=== PATIENT | male | born 1990 | race Caucasian/White ===

== ENCOUNTER 2020-09-18 21:38 | Observation (INO) | payer SELFPAY ==
[2020-09-18] MEDS ORDERED: Sodium Chloride 0.9% 2.5 ML Syringe FLUSH PRN (22:20)
[2020-09-18] MEDS ORDERED: Sodium Chloride 0.9% 1,000 ML IV ONE (22:20)
[2020-09-18] MEDS ORDERED: Sodium Chloride 0.9% 10 ML Syringe FLUSH PRN (22:20)
[2020-09-18] MEDS ORDERED: Pantoprazole 80 MG in Sodium Chloride 0.9% 20 ML IVPUSH ONE (22:29)
--- NOTE | 2020-09-18 22:31 | EDM.PDOC ---
<Clarice Ramírez - Last Filed: 09/19/20 00:05> ED HPI GENERAL MEDICAL PROBLEM - General Chief Complaint: Gastrointestinal Problem Stated Complaint: VOMITTING BLOOD Time Seen by Provider: 09/18/20 21:43 Source of Information: Reports: Patient History Limitations: Reports: No Limitations - History of Present Illness INITIAL COMMENTS - FREE TEXT/NARRATIVE: HISTORY AND PHYSICAL: History of present illness: The patient is a 30-year-old male who presents to the emergency department after 6 hours of vomiting blood. Patient states that he started vomiting a little amount of brown emesis and over the course of 6 hours it became a larger amount and very black. The patient states that he is not in pain except when he is vomiting and he has an acid-like feeling in his throat. The patient had some nausea but none at present. He does have a headache that started around 9:00. He stated that at around 1500 today he felt a little lightheaded but not right now. The patient did eat a hotdog at noon but it did not stay down he immediately vomited back up. Patient states that his last bowel movement was 2 days ago normal formed and brown in color. Patient states that he is passing gas. The patient is extremely dairy intolerant but assures me that he has not taken any has not ingested any dairy that he is aware of. Is a social drinker and his last drink was last week and. The patient states that he has not had any trauma to the abdomen or back. Patient states that while he does not have any urinary symptoms such as dysuria or frequency he has only urinated 3-4 times since 3 PM. Patient denies any fever, chills, change in vision, syncope or near syncope. Denies any chest pain, back pain, shortness of breath or cough. Denies any abd ominal pain, diarrhea, constipation or dysuria. Has not noted any blood in urine or stool. Review of systems: As per history of present illness and below otherwise all systems reviewed and negative. Past medical history: As per history of present illness and as reviewed below otherwise noncontributory. Surgical history: As per history of present illness and as reviewed below otherwise nonco ntributory. Social history: See social history for further information Family history: As per history of present illness and as reviewed below otherwise noncontributory. Physical exam: General: Well developed and well nourished. Alert and orientated x 3. Nontoxic in appearance and in no acute distress. Vital signs are stable and have been reviewed by me. Nursing notes were reviewed. HEENT: Atraumatic, normocephalic, pupils equal and reactive bilaterally, negative for conjunctival pallor or scleral icterus, mucous membranes moist, TMs normal bilaterally, throat clear, neck supple, nontender, trachea midline. No drooling or trismus noted. No meningeal signs. No hot potato voice noted. Lungs: Clear to auscultation bilaterally. No wheezes, rales, or rhonchi. Chest nontender. Normal work of breathing, no accessory muscles used. Heart: S1S2, regular rate and rhythm without overt murmur, gallops, or rubs. No JVD. No peripheral edema Abdomen: Soft, nondistended, nontender. Normoactive bowel sounds. Negative for masses or costovertebral tenderness. Skin: Intact, warm, dry. No lesions or rashes noted. Hematologic: No petechiae or purpra. Mucosa appropriate color and normal nail bed color and refill. Extremities: Atraumatic, moves all extremities per self without difficulty or deficits, negative for cords or calf pain. Neurovascular unremarkable. Neuro: Awake, alert, oriented. Cranial nerves II through XII unremarkable. Cerebellum unremarkable. Motor and sensory unremarkable throughout. Exam nonfocal. Psychiatric: Mood and affect are appropriate. Normal thought process. Answering questions appropriately. Notes: *This patient was seen and evaluated during the 2019 SARS-CoV-2 novel coronavirus pandemic period. Community viral transmission is ongoing at time of this encounter and the emergency department is operating under pandemic response procedures. As stated above the patient presents with progressing black emesis over the last 6 hours. The patient's pulse in the emergency department is 130 and his blood pressure was 151/103. I have ordered labs, IV fluids, and an EKG. Dr. Madden consulted on case and has ordered lipase and pantoprazole IV. The patient is agreeable to the plan. Report to Dr. Madden Diagnostics: CBC, CMP, EKG, lipase, museum Therapeutics: IV fluids, pantoprazole Prescription: Impression: Definitive disposition and diagnosis as appropriate pending reevaluation and review of above. - Related Data Allergies Allergy/AdvReac Type Severity Reaction Status Date / Time Dairy Products Allergy Vomiting Verified 09/18/20 22:45 Home Meds: Home Meds Fexofenadine/Pseudoephedrine [Irene-D 12 Hour Tablet] 1 each PO DAILY 09/18/20 [History] ED ROS GENERAL - Review of Systems Review Of Systems: Comprehensive ROS is negative, except as noted in HPI. ED EXAM, GI/ABD - Physical Exam Exam: See Below (See dictation) Departure - Departure Disposition: Refer to Observation Clinical Impression: Upper GI bleed, Tachycardia - Discharge Information Referrals: PCP,None [Primary Care Provider] - Forms: ED Department Discharge <Hugo Madden - Last Filed: 09/19/20 01:05> #1 Interpretation EKG Interpretation Comments: EKG sinus tachycardia heart rate 126 [place] 82 NV interval 150 QT duration [address] and T impression this is normal except for the heart rate. Course - Vital Signs Text/Narrative:: [address] Bhargav Santillan on-call for surgery and he is willing to scope the patient in the morning. Because of the tachycardia I am going to hydrate him and recommend observation overnight. Dr. Santillan wants Carafate given now and patient n.p.o. after midnight. CT showed a hiatal hernia but no perforation. Discussed with Dr. Kyle Santillan and placed in observation status for endoscopy in the morning. He will be placed in observation status Last Recorded V/S: Last Vital Signs Temp 37.8 C 09/18/20 22:43 Pulse 112 H 09/19/20 00:08 Resp 18 09/19/20 00:08 BP 131/93 H 09/19/20 00:08 Pulse Ox 97 09/19/20 00:08 - Orders/Labs/Meds Orders: Active Orders 24 hr Category Date Time Status EKG Documentation Completion [RC] STAT Care 09/18/20 22:20 Active CORONAVIRUS COVID-19 PETER [MOLEC] Stat Lab 09/19/20 00:51 Received Dextrose 5%-Lactated Ringers 1,000 ml Med 09/19/20 00:30 Active IV ASDIRECTED Sodium Chloride 0.9% [Saline Flush] Med 09/18/20 22:20 Active 10 ml FLUSH ASDIRECTED PRN Sodium Chloride 0.9% [Saline Flush] Med 09/18/20 22:20 Active 2.5 ml FLUSH ASDIRECTED PRN Saline Lock Insert [OM.PC] Stat Oth 09/18/20 22:20 Ordered Medication Orders Dextrose/Lactated Ringer's (Dextrose 5%-Lactated Ringers) 1,000 mls @ 125 mls/hr IV ASDIRECTED KISHA Last Admin: 09/19/20 00:45 Dose: 125 mls/hr Documented by: PAUL Sodium Chloride (Sodium Chloride 0.9% 10 Ml Syringe) 10 ml FLUSH ASDIRECTED PRN PRN Reason: Keep Vein Open Last Admin: 09/18/20 22:54 Dose: 10 ml Documented by: PAUL Sodium Chloride (Sodium Chloride 0.9% 2.5 Ml Syringe) 2.5 ml FLUSH ASDIRECTED PRN PRN Reason: Keep Vein Open Last Admin: 09/18/20 22:55 Dose: 2.5 ml Documented by: PAUL Labs: Laboratory Tests 09/18/20 09/18/20 09/18/20 Range/Units 22:37 23:10 23:10 WBC 7.13 (4.0-11.0) K/uL RBC 5.24 (4.50-5.90) M/uL Hgb 15.3 (13.0-17.0) g/dL Hct 43.6 (38.0-50.0) % MCV 83.2 (80.0-98.0) fL MCH 29.2 (27.0-32.0) pg MCHC 35.1 (31.0-37.0) g/dL RDW Std Deviation 36.3 (28.0-62.0) fl RDW Coeff of Xavier 12 (11.0-15.0) % Plt Count 209 (150-400) K/uL MPV 9.10 (7.40-12.00) fL Neut % (Auto) 83.6 H (48.0-80.0) % Lymph % (Auto) 6.3 L (16.0-40.0) % Aurora % (Auto) 9.8 (0.0-15.0) % Eos % (Auto) 0.3 (0.0-7.0) % Baso % (Auto) 0.0 (0.0-1.5) % Neut # (Auto) 6.0 H (1.4-5.7) K/uL Lymph # (Auto) 0.5 L (0.6-2.4) K/uL Aurora # (Auto) 0.7 (0.0-0.8) K/uL Eos # (Auto) 0.0 (0.0-0.7) K/uL Baso # (Auto) 0.0 (0.0-0.1) K/uL Nucleated RBC % 0.0 /100WBC Nucleated RBCs # 0 K/uL INR Sodium 140 (136-148) mmol/L Potassium 3.6 (3.5-5.1) mmol/L Chloride 102 (98-107) mmol/L Carbon Dioxide 29.1 (21.0-32.0) mmol/L BUN 9 (7.0-18.0) mg/dL Creatinine 1.0 (0.8-1.3) mg/dL Est Cr Clr Drug Dosing 129.10 mL/min Estimated GFR (MDRD) > 60.0 ml/min Glucose 118 H (74-106) mg/dL Calcium 9.0 (8.5-10.1) mg/dL Magnesium 1.9 (1.8-2.4) mg/dL Total Bilirubin 0.9 (0.2-1.0) mg/dL AST 12 L (15-37) IU/L ALT 24 (14-63) IU/L Alkaline Phosphatase 82 (46-116) U/L Total Protein 6.8 (6.4-8.2) g/dL Albumin 3.7 (3.4-5.0) g/dL Globulin 3.1 (2.6-4.0) g/dL Albumin/Globulin Ratio 1.2 (0.9-1.6) Lipase (73-393) U/L Blood Type A POSITIVE Antibody Screen NEGATIVE 09/18/20 09/18/20 Range/Units 23:10 23:22 WBC (4.0-11.0) K/uL RBC (4.50-5.90) M/uL Hgb (13.0-17.0) g/dL Hct (38.0-50.0) % MCV (80.0-98.0) fL MCH (27.0-32.0) pg MCHC (31.0-37.0) g/dL RDW Std Deviation (28.0-62.0) fl RDW Coeff of Xavier (11.0-15.0) % Plt Count (150-400) K/uL MPV (7.40-12.00) fL Neut % (Auto) (48.0-80.0) % Lymph % (Auto) (16.0-40.0) % Aurora % (Auto) (0.0-15.0) % Eos % (Auto) (0.0-7.0) % Baso % (Auto) (0.0-1.5) % Neut # (Auto) (1.4-5.7) K/uL Lymph # (Auto) (0.6-2.4) K/uL Aurora # (Auto) (0.0-0.8) K/uL Eos # (Auto) (0.0-0.7) K/uL Baso # (Auto) (0.0-0.1) K/uL Nucleated RBC % /100WBC Nucleated RBCs # K/uL INR 1.08 Sodium (136-148) mmol/L Potassium (3.5-5.1) mmol/L Chloride (98-107) mmol/L Carbon Dioxide (21.0-32.0) mmol/L BUN (7.0-18.0) mg/dL Creatinine (0.8-1.3) mg/dL Est Cr Clr Drug Dosing mL/min Estimated GFR (MDRD) ml/min Glucose (74-106) mg/dL Calcium (8.5-10.1) mg/dL Magnesium (1.8-2.4) mg/dL Total Bilirubin (0.2-1.0) mg/dL AST (15-37) IU/L ALT (14-63) IU/L Alkaline Phosphatase (46-116) U/L Total Protein (6.4-8.2) g/dL Albumin (3.4-5.0) g/dL Globulin (2.6-4.0) g/dL Albumin/Globulin Ratio (0.9-1.6) Lipase 38 L (73-393) U/L Blood Type Antibody Screen Meds: Medications Generic Name Dose Route Start Last Admin Trade Name Freq PRN Reason Stop Dose Admin Dextrose/Lactated Ringer's 1,000 mls @ 125 mls/hr 09/19/20 00:30 09/19/20 00:45 Dextrose 5%-Lactated Ringers IV 125 mls/hr ASDIRECTED KISHA Administration Sodium Chloride 10 ml 09/18/20 22:20 09/18/20 22:54 Sodium Chloride 0.9% 10 Ml Syringe FLUSH 10 ml ASDIRECTED PRN Administration Keep Vein Open Sodium Chloride 2.5 ml 09/18/20 22:20 09/18/20 22:55 Sodium Chloride 0.9% 2.5 Ml Syringe FLUSH 2.5 ml ASDIRECTED PRN Administration Keep Vein Open Discontinued Medications Generic Name Dose Route Start Last Admin Trade Name Freq PRN Reason Stop Dose Admin Sodium Chloride 1,000 mls @ 999 mls/hr 09/18/20 22:20 09/18/20 22:54 Normal Saline IV 09/18/20 23:20 999 mls/hr .BOLUS ONE Administration Pantoprazole Sodium 80 mg/ 20 mls @ 420 mls/hr 09/18/20 22:29 09/18/20 22:55 Sodium Chloride IVPUSH 09/18/20 22:31 420 mls/hr ONETIME ONE Administration Iopamidol 100 ml 09/19/20 00:27 09/19/20 00:27 Iopamidol 755 Mg/Ml 500 Ml Multipack Bottle IVPUSH 09/19/20 00:28 100 ml ONETIME STA Administration Ondansetron HCl 4 mg 09/18/20 23:03 09/18/20 23:10 Ondansetron 4 Mg/2 Ml Sdv IVPUSH 09/18/20 23:04 4 mg ONETIME ONE Administration Sucralfate 1 gm 09/18/20 23:58 09/19/20 00:07 Sucralfate 1 Gm Tab PO 09/18/20 23:59 1 gm ONETIME ONE Administration Departure - Departure Time of Disposition: 01:05 Condition: Good Sepsis Event Note (ED) - Focused Exam Vital Signs: Vital Signs Temp Pulse Resp BP Pulse Ox 09/19/20 00:08 112 H 18 131/93 H 97 09/18/20 22:43 37.8 C 130 H 16 130/96 H 93 L - My Orders Last 24 Hours: My Active Orders 09/19/20 00:30 Dextrose 5%-Lactated Ringers 1,000 ml IV ASDIRECTED 09/19/20 00:51 CORONAVIRUS COVID-19 PETER [MOLEC] Stat - Assessment/Plan Last 24 Hours: My Active Orders 09/19/20 00:30 Dextrose 5%-Lactated Ringers 1,000 ml IV ASDIRECTED 09/19/20 00:51 CORONAVIRUS COVID-19 PETER [MOLEC] Stat
[2020-09-18] MEDS ORDERED: Ondansetron 4 MG/2 ML SDV IVPUSH ONE (23:03)
[2020-09-18 23:55] LABS: BLOOD UREA NITROGEN,BUN 9 mg/dL (7.0-18.0); CARBON DIOXIDE,CO2 29.1 mmol/L (21.0-32.0); CHLORIDE,CL 102 mmol/L (98-107); GLUCOSE RANDOM 118 mg/dL (74-106); POTASSIUM,K 3.6 mmol/L (3.5-5.1); SODIUM,NA 140 mmol/L (136-148)
[2020-09-18] MEDS ORDERED: Sucralfate 1 GM Tab PO ONE (23:58)
[2020-09-19] MEDS ORDERED: Iopamidol 755 MG/ML 500 ML Multipack Bottle IVPUSH STA (00:27)
[2020-09-19] MEDS ORDERED: Dextrose 5%-Lactated Ringers 1,000 ML IV SCH (00:30)
--- NOTE | 2020-09-19 00:56 | CT ---
For Patients: As a result of the Century Cures Act, medical imaging exams and procedure reports are released immediately into your electronic medical record. You may view this report before your referring provider. If you have questions, please contact your health care provider. Indication: Coffee-ground emesis Technique: Contrast enhanced axial CT imaging through the abdomen and pelvis. 100 mL Isovue 370 contrast agent was administered intravenously. Sagittal and coronal reconstructions are provided. Comparison: None Findings: No abnormalities are demonstrated relating to the liver, gallbladder, spleen, pancreas, adrenal glands, and kidneys. The portal vein is patent. The abdominal aorta is normal in caliber. There is no abdominal lymphadenopathy. There is a small sliding-type hiatal hernia. Two oval hyperdense foci in the stomach presumably represent ingested pills. There is no gastric wall thickening or edema. The small bowel is unremarkable. The appendix is noninflamed. There is no colonic wall thickening or mesenteric edema. The urinary bladder, prostate gland, and seminal vesicles are unremarkable. There is no pelvic lymphadenopathy or free fluid. The osseous structures are unremarkable. The included lung bases are clear. Impression: 1. No acute abnormality demonstrated in the abdomen pelvis. 2. Small sliding-type hiatal hernia. Please note that all CT scans at this facility use dose modulation, iterative reconstruction, and/or weight-based dosing when appropriate to reduce radiation dose to as low as reasonably achievable. Dictated by Kyle Paz MD @ 09/19/2020 12:55:[address] Klye Paz @ Sep 19 2020 12:55AM
--- NOTE | 2020-09-19 04:33 | CONS ---
DATE OF CONSULTATION: 09/19/2020 DATE OF : 1990 PRIMARY CARE PHYSICIAN: None PCP HISTORY OF PRESENT ILLNESS: The patient is a pleasant 30-year-old gentleman who says around 3 p.m. this afternoon he started vomiting. He says first it was brown and then it became more black. The patient had a hot dog for lunch. The patient says he does have some epigastric pain when he vomits. When he is not vomiting, he is having very little to no abdominal pain. Since being in the ER, he says his emesis has turned green and more bile color. Also after getting Zofran, his nausea has greatly decreased. The patient says over the last couple of months he has noticed intermittent dark stools. He has not had a bowel movement in the last 2 days. He denies any bright red blood in his emesis. The patient denies any swallowing or eating issues. He does have issues with heartburn, and he takes Tums several times most days. The patient says he also is allergic to dairy products. He denies any tobacco use. He occasionally uses alcohol. PAST MEDICAL HISTORY: The patient denies any other than his heartburn. HOME MEDICATIONS: Irene and Tums. SOCIAL HISTORY: The patient denies any tobacco use, denies illicit drug use. He does have a couple of beers on occasion. FAMILY HISTORY: Does have family history of leukemia. PAST SURGICAL HISTORY: Wrist surgery. ALLERGIES: No known drug allergies. Is intolerant to dairy products. LABORATORY DATA: White cell count is 7.13, hemoglobin is 15.3, platelet count is 209. INR is 1.08. Sodium 140, potassium 3.6, chloride 102, BUN 9, creatinine 1. COVID negative. IMAGING: Did have a CT scan which did show a small hiatal hernia. He also has two likely undigested pills in the stomach. REVIEW OF SYSTEMS: Complete 12+ review of systems was done. It was negative except for HPI. NEUROLOGICAL: The patient says he is starting to have a little bit of a headache. MUSCULAR: The patient says he is having soreness in his quadriceps bilaterally in his legs. PHYSICAL EXAMINATION: GENERAL: The patient is sitting comfortably in the ER bed. He is alert and oriented, in no acute distress. VITAL SIGNS: Temperature is 100, pulse is 112, blood pressure is 131/93, saturating 97% on room air. HEENT: Head normocephalic and atraumatic. LUNGS: Clear to auscultation bilaterally. No rhonchi or wheezing heard. HEART: Regular rhythm, but is tachy. No murmur appreciated. ABDOMEN: Soft, nontender, and nondistended. EXTREMITIES: No edema. NEUROLOGIC: Grossly, no motor or neurologic deficit noted. ASSESSMENT AND PLAN: The patient is a pleasant 30-year-old gentleman who has been consulted for upper gastrointestinal bleed. He has not seen any bright red blood, but just brown and black emesis, which has now turned to more green and bile like. The patient does have a history of heartburn, which he takes Tums for. Hemoglobin was 15.3. I did go over with the patient that consult is to do an upper endoscopy. I did go over with the patient what esophagogastroduodenoscopy was. I went over with the risks, goals, and alternatives of the procedure. The risks include, but not limited to, bleeding, perforation, missed lesions, and failure to complete the procedure. I did go over with the patient that we may not find a cause for his emesis or the black emesis. Emesis earlier could have been black for reasons other than a bleed. The patient understands. All his questions were answered. We will plan to do an upper endoscopy later this morning. He will be admitted to the Medicine Service. He has been also given IV Protonix. DANTE / LATASHA /[id number]
[2020-09-19] MEDS: Sodium Chloride 0.9% 1,000 ML IV SCH ×2 (05:23→10:46)
[2020-09-19] MEDS ORDERED: Pantoprazole 40 MG in Sodium Chloride 0.9% 10 ML IV SCH ×2 (07:30→09:00)
--- NOTE | 2020-09-19 08:56 | PCM.PREANE ---
Preanesthetic Assessment - Anesthesia/Transfusion/Family Hx Anesthesia History: Prior Anesthesia Without Reaction Family History of Anesthesia Reaction: No Transfusion History: No Prior Transfusion(s) Intubation History: Unknown - Review of Systems General: No Symptoms Pulmonary: No Symptoms Cardiovascular: No Symptoms, Other (Tachycardia) Gastrointestinal: Other (Emesis) Neurological: No Symptoms Other: Reports: None - Physical Assessment NPO Status Date: 09/19/20 NPO Status Time: 00:00 Vital Signs: Last Vital Signs Temp 37.1 C 09/19/20 08:06 Pulse 119 H 09/19/20 08:06 Resp 18 09/19/20 08:06 BP 114/70 09/19/20 08:06 Pulse Ox 99 09/19/20 08:06 Height: 1.91 m Weight: 94.619 kg ASA Class: 2E Mental Status: Alert & Oriented x3 Airway Class: Mallampati = 2 Dentition: Reports: Normal Dentition Thyro-Mental Finger Breadths: 3 Mouth Opening Finger Breadths: 3 ROM/Head Extension: Full Lungs: Clear to Auscultation, Normal Respiratory Effort Cardiovascular: Regular Rate, Tachycardia - Lab Values: Laboratory Last Values WBC 7.13 K/uL (4.0-11.0) 09/18/20 23:10 RBC 5.24 M/uL (4.50-5.90) 09/18/20 23:10 Hgb 15.3 g/dL (13.0-17.0) 09/18/20 23:10 Hct 43.6 % (38.0-50.0) 09/18/20 23:10 MCV 83.2 fL (80.0-98.0) 09/18/20 23:10 MCH 29.2 pg (27.0-32.0) 09/18/20 23:10 MCHC 35.1 g/dL (31.0-37.0) 09/18/20 23:10 RDW Std Deviation 36.3 fl (28.0-62.0) 09/18/20 23:10 RDW Coeff of Xavier 12 % (11.0-15.0) 09/18/20 23:10 Plt Count 209 K/uL (150-400) 09/18/20 23:10 MPV 9.10 fL (7.40-12.00) 09/18/20 23:10 Neut % (Auto) 83.6 % (48.0-80.0) H 09/18/20 23:10 Lymph % (Auto) 6.3 % (16.0-40.0) L 09/18/20 23:10 Ross % (Auto) 9.8 % (0.0-15.0) 09/18/20 23:10 Eos % (Auto) 0.3 % (0.0-7.0) 09/18/20 23:10 Baso % (Auto) 0.0 % (0.0-1.5) 09/18/20 23:10 Neut # (Auto) 6.0 K/uL (1.4-5.7) H 09/18/20 23:10 Lymph # (Auto) 0.5 K/uL (0.6-2.4) L 09/18/20 23:10 Ross # (Auto) 0.7 K/uL (0.0-0.8) 09/18/20 23:10 Eos # (Auto) 0.0 K/uL (0.0-0.7) 09/18/20 23:10 Baso # (Auto) 0.0 K/uL (0.0-0.1) 09/18/20 23:10 Nucleated RBC % 0.0 /100WBC 09/18/20 23:10 Nucleated RBCs # 0 K/uL 09/18/20 23:10 INR 1.08 09/18/20 23:22 Sodium 140 mmol/L (136-148) 09/18/20 23:10 Potassium 3.6 mmol/L (3.5-5.1) 09/18/20 23:10 Chloride 102 mmol/L (98-107) 09/18/20 23:10 Carbon Dioxide 29.1 mmol/L (21.0-32.0) 09/18/20 23:10 BUN 9 mg/dL (7.0-18.0) 09/18/20 23:10 Creatinine 1.0 mg/dL (0.8-1.3) 09/18/20 23:10 Est Cr Clr Drug Dosing 129.10 mL/min 09/18/20 23:10 Estimated GFR (MDRD) > 60.0 ml/min 09/18/20 23:10 Glucose 118 mg/dL (74-106) H 09/18/20 23:10 Calcium 9.0 mg/dL (8.5-10.1) 09/18/20 23:10 Magnesium 1.9 mg/dL (1.8-2.4) 09/18/20 23:10 Total Bilirubin 0.9 mg/dL (0.2-1.0) 09/18/20 23:10 AST 12 IU/L (15-37) L 09/18/20 23:10 ALT 24 IU/L (14-63) 09/18/20 23:10 Alkaline Phosphatase 82 U/L (46-116) 09/18/20 23:10 Total Protein 6.8 g/dL (6.4-8.2) 09/18/20 23:10 Albumin 3.7 g/dL (3.4-5.0) 09/18/20 23:10 Globulin 3.1 g/dL (2.6-4.0) 09/18/20 23:10 Albumin/Globulin Ratio 1.2 (0.9-1.6) 09/18/20 23:10 Lipase 38 U/L (73-393) L 09/18/20 23:10 SARS-CoV-2 RNA (PETER) NEGATIVE (NEGATIVE) 09/19/20 00:51 Blood Type A POSITIVE 09/18/20 22:37 Antibody Screen NEGATIVE 09/18/20 22:37 - Allergies Allergies/Adverse Reactions: Allergies Allergy/AdvReac Type Severity Reaction Status Date / Time Dairy Products Allergy Vomiting Verified 09/18/20 22:45 - Blood Blood Available: No Product(s) Available: None - Anesthesia Plan Pre-Op Medication Ordered: None - Acknowledgements Anesthesia Type Planned: MAC Pt an Appropriate Candidate for the Planned Anesthesia: Yes Alternatives and Risks of Anesthesia Discussed w Pt/Guardian: Yes Pt/Guardian Understands and Agrees with Anesthesia Plan: Yes Additional Comments: Discussed. ? answered, permit signed. PreAnesthesia Questionnaire - Infectious Disease History Infectious Disease History: Reports: None - Past Surgical History Musculoskeletal Surgical History: Reports: Other (See Below) Other Musculoskeletal Surgeries/Procedures:: wrist surgery - SUBSTANCE USE Tobacco Use Status *Q: Never Tobacco User Tobacco Use Within Last Twelve Months: No Second Hand Smoke Exposure: No Days Per Week of Alcohol Use: 1 Number of Drinks Per Day: 5 Total Drinks Per Week: 5 Date of Last Drink: 09/12/20 Recreational Drug Use History: No - HOME MEDS Home Medications: Home Meds Fexofenadine/Pseudoephedrine [Irene-D 12 Hour Tablet] 1 each PO DAILY 09/18/20 [History] - CURRENT (IN HOUSE) MEDS Current Meds: Current Medications Sodium Chloride (Normal Saline) 1,000 mls @ 125 mls/hr IV ASDIRECTED KISHA Last Admin: 09/19/20 05:23 Dose: 125 mls/hr Documented by: Pantoprazole Sodium 40 mg/ (Sodium Chloride) 10 mls @ 300 mls/hr IV BID KISHA Sodium Chloride (Sodium Chloride 0.9% 10 Ml Syringe) 10 ml FLUSH ASDIRECTED PRN PRN Reason: Keep Vein Open Last Admin: 09/18/20 22:54 Dose: 10 ml Documented by: Sodium Chloride (Sodium Chloride 0.9% 2.5 Ml Syringe) 2.5 ml FLUSH ASDIRECTED PRN PRN Reason: Keep Vein Open Last Admin: 09/18/20 22:55 Dose: 2.5 ml Documented by: Discontinued Medications Sodium Chloride (Normal Saline) 1,000 mls @ 999 mls/hr IV .BOLUS ONE Stop: 09/18/20 23:20 Last Admin: 09/18/20 22:54 Dose: 999 mls/hr Documented by: Pantoprazole Sodium 80 mg/ (Sodium Chloride) 20 mls @ 420 mls/hr IVPUSH ONETIME ONE Stop: 09/18/20 22:31 Last Admin: 09/18/20 22:55 Dose: 420 mls/hr Documented by: Dextrose/Lactated Ringer's (Dextrose 5%-Lactated Ringers) 1,000 mls @ 125 ml s/hr IV ASDIRECTED KISHA Last Admin: 09/19/20 00:45 Dose: 125 mls/hr Documented by: Pantoprazole Sodium 40 mg/ (Sodium Chloride) 10 mls @ 300 mls/hr IV BIDAC KISHA Iopamidol (Iopamidol 755 Mg/Ml 500 Ml Multipack Bottle) 100 ml IVPUSH ONETIME STA Stop: 09/19/20 00:28 Last Admin: 09/19/20 00:27 Dose: 100 ml Documented by: Ondansetron HCl (Ondansetron 4 Mg/2 Ml Sdv) 4 mg IVPUSH ONETIME ONE Stop: 09/18/20 23:04 Last Admin: 09/18/20 23:10 Dose: 4 mg Documented by: Sucralfate (Sucralfate 1 Gm Tab) 1 gm PO ONETIME ONE Stop: 09/18/20 23:59 Last Admin: 09/19/20 00:07 Dose: 1 gm Documented by:
--- NOTE | 2020-09-19 09:07 | PCM.HP.2 ---
H&P History of Present Illness - General Date of Service: 09/19/20 Admit Problem/Dx: Admission Diagnosis/Problem Admission Diagnosis/Problem GI bleed not requiring more than 4 units of blood in 24 hours, ICU, or surgery Source of Information: Patient History Limitations: Reports: No Limitations - History of Present Illness Initial Comments - Free Text/Narative: Patient is a 30-year-old male with no significant past medical history except for frequent heartburn and stomach complaints of lactose intolerance. Patient presented to the ED yesterday with complaints of vomiting for approximately 6 hours. States that initially he had small vomits with a brown color associated gradually increasing in quantity, frequency and progressing to a black color. Patient denies any associated pain, fever, chills, urinary or bowel changes. Does endorse associated nausea, decreased appetite, inability to keep food down. States that Zofran given had helped reduce nausea symptoms. States last night his vomits became more yellow-green like bile. ER course: Patient was tachycardic 130s, blood pressure of 151/103, labs were ordered including CBC, CMP and INR. IV fluids were started, EKG, lipase level and given Protonix. Initially given LR followed by maintenance fluids of normal saline at 125. CT indicated hiatal hernia and to undigested pills in the abdomen. Duration of Symptoms: Reports: Day(s): (1) - Related Data Allergies/Adverse Reactions: Allergies Allergy/AdvReac Type Severity Reaction Status Date / Time Dairy Products Allergy Vomiting Verified 09/18/20 22:45 Home Medications: Home Meds Fexofenadine/Pseudoephedrine [Irene-D 12 Hour Tablet] 1 each PO DAILY 09/18/20 [History] Past Medical History - Infectious Disease History Infectious Disease History: Reports: None - Past Surgical History Musculoskeletal Surgical History: Reports: Other (See Below) Other Musculoskeletal Surgeries/Procedures:: wrist surgery Social & Family History - Family History Family Medical History: No Pertinent Family History - Tobacco Use Tobacco Use Status *Q: Never Tobacco User Second Hand Smoke Exposure: No - Caffeine Use Caffeine Use: Reports: Coffee - Alcohol Use Days Per Week of Alcohol Use: 1 Number of Drinks Per Day: 5 Total Drinks Per Week: 5 Date of Last Drink: 09/12/20 - Recreational Drug Use Recreational Drug Use: No H&P Review of Systems - Review of Systems: Review Of Systems: See Below General: Reports: Decreased Appetite HEENT: Reports: No Symptoms Pulmonary: Reports: No Symptoms. Denies: Shortness of Breath, Pleuritic Chest Pain, Cough, Hemoptysis Cardiovascular: Reports: No Symptoms. Denies: Palpitations Gastrointestinal: Reports: No Symptoms, Decreased Appetite, Nausea. Denies: Abdominal Pain, Black Stool, Bloody Stool, Constipation, Diarrhea, Flatus, Hematochezia, Melena Musculoskeletal: Reports: No Symptoms Skin: Reports: No Symptoms Psychiatric: Reports: No Symptoms Neurological: Reports: No Symptoms Hematologic/Lymphatic: Reports: No Symptoms Immunologic: Reports: No Symptoms Exam - Exam Exam: See Below - Vital Signs Vital Signs: Last Vital Signs Temp 98.7 F 09/19/20 08:06 Pulse 119 H 09/19/20 08:06 Resp 18 09/19/20 08:06 BP 114/70 09/19/20 08:06 Pulse Ox 99 09/19/20 08:06 Weight: 208 lb 9.6 oz - Exam General: Alert, Oriented, Cooperative HEENT: Conjunctiva Clear, Mucosa Moist & [place], Nares Patent, Posterior Pharynx Clear, Pupils Equal, Pupils Reactive Neck: Supple, Trachea Midline. No: Lymphadenopathy Lungs: Clear to Auscultation, Normal Respiratory Effort Cardiovascular: Regular Rhythm, Tachycardia. No: Regular Rate GI/Abdominal Exam: Normal Bowel Sounds, Soft, Non-Tender Extremities: Normal Inspection, Normal Range of Motion, Non-Tender, No Pedal Edema, Normal Capillary Refill Peripheral Pulses: 2+: Carotid (L), Carotid (R), Dorsalis Pedis (L), Dorsalis Pedis (R) Skin: Warm, Dry, Intact Neurological: Cranial Nerves Intact, Reflexes Equal Bilateral Neuro Extensive - Mental Status: Alert, Oriented x3, Normal Mood/Affect, Normal Cognition, Memory Intact Neuro Extensive - Motor, Sensory, Reflexes: CN II-XII Intact, Normal Gait, Normal Reflexes DTR: 2+: Bicep (L), Bicep (R), Achilles (L), Achilles (R) Psychiatric: Alert, Normal Affect, Normal Mood - Patient Data Lab Results Last 24 hrs: Laboratory Results - last 24 hr 09/18/20 09/18/20 09/18/20 Range/Units 22:37 23:10 23:10 WBC 7.13 (4.0-11.0) K/uL RBC 5.24 (4.50-5.90) M/uL Hgb 15.3 (13.0-17.0) g/dL Hct 43.6 (38.0-50.0) % MCV 83.2 (80.0-98.0) fL MCH 29.2 (27.0-32.0) pg MCHC 35.1 (31.0-37.0) g/dL RDW Std Deviation 36.3 (28.0-62.0) fl RDW Coeff of Xavier 12 (11.0-15.0) % Plt Count 209 (150-400) K/uL MPV 9.10 (7.40-12.00) fL Neut % (Auto) 83.6 H (48.0-80.0) % Lymph % (Auto) 6.3 L (16.0-40.0) % [place] % (Auto) 9.8 (0.0-15.0) % Eos % (Auto) 0.3 (0.0-7.0) % Baso % (Auto) 0.0 (0.0-1.5) % Neut # (Auto) 6.0 H (1.4-5.7) K/uL Lymph # (Auto) 0.5 L (0.6-2.4) K/uL [place] # (Auto) 0.7 (0.0-0.8) K/uL Eos # (Auto) 0.0 (0.0-0.7) K/uL Baso # (Auto) 0.0 (0.0-0.1) K/uL Nucleated RBC % 0.0 /100WBC Nucleated RBCs # 0 K/uL INR Sodium 140 (136-148) mmol/L Potassium 3.6 (3.5-5.1) mmol/L Chloride 102 (98-107) mmol/L Carbon Dioxide 29.1 (21.0-32.0) mmol/L BUN 9 (7.0-18.0) mg/dL Creatinine 1.0 (0.8-1.3) mg/dL Est Cr Clr Drug Dosing 129.10 mL/min Estimated GFR (MDRD) > 60.0 ml/min Glucose 118 H (74-106) mg/dL Calcium 9.0 (8.5-10.1) mg/dL Magnesium 1.9 (1.8-2.4) mg/dL Total Bilirubin 0.9 (0.2-1.0) mg/dL AST 12 L (15-37) IU/L ALT 24 (14-63) IU/L Alkaline Phosphatase 82 (46-116) U/L Total Protein 6.8 (6.4-8.2) g/dL Albumin 3.7 (3.4-5.0) g/dL Globulin 3.1 (2.6-4.0) g/dL Albumin/Globulin Ratio 1.2 (0.9-1.6) Lipase (73-393) U/L SARS-CoV-2 RNA (PETER) (NEGATIVE) Blood Type A POSITIVE Antibody Screen NEGATIVE 09/18/20 09/18/20 09/19/20 Range/Units 23:10 23:22 00:51 WBC (4.0-11.0) K/uL RBC (4.50-5.90) M/uL Hgb (13.0-17.0) g/dL Hct (38.0-50.0) % MCV (80.0-98.0) fL MCH (27.0-32.0) pg MCHC (31.0-37.0) g/dL RDW Std Deviation (28.0-62.0) fl RDW Coeff of Xavier (11.0-15.0) % Plt Count (150-400) K/uL MPV (7.40-12.00) fL Neut % (Auto) (48.0-80.0) % Lymph % (Auto) (16.0-40.0) % [place] % (Auto) (0.0-15.0) % Eos % (Auto) (0.0-7.0) % Baso % (Auto) (0.0-1.5) % Neut # (Auto) (1.4-5.7) K/uL Lymph # (Auto) (0.6-2.4) K/uL [place] # (Auto) (0.0-0.8) K/uL Eos # (Auto) (0.0-0.7) K/uL Baso # (Auto) (0.0-0.1) K/uL Nucleated RBC % /100WBC Nucleated RBCs # K/uL INR 1.08 Sodium (136-148) mmol/L Potassium (3.5-5.1) mmol/L Chloride (98-107) mmol/L Carbon Dioxide (21.0-32.0) mmol/L BUN (7.0-18.0) mg/dL Creatinine (0.8-1.3) mg/dL Est Cr Clr Drug Dosing mL/min Estimated GFR (MDRD) ml/min Glucose (74-106) mg/dL Calcium (8.5-10.1) mg/dL Magnesium (1.8-2.4) mg/dL Total Bilirubin (0.2-1.0) mg/dL AST (15-37) IU/L ALT (14-63) IU/L Alkaline Phosphatase (46-116) U/L Total Protein (6.4-8.2) g/dL Albumin (3.4-5.0) g/dL Globulin (2.6-4.0) g/dL Albumin/Globulin Ratio (0.9-1.6) Lipase 38 L (73-393) U/L SARS-CoV-2 RNA (PETER) NEGATIVE (NEGATIVE) Blood Type Antibody Screen Result Diagrams: 09/18/20 23:10 09/18/20 23:10 Sepsis Event Note - Evaluation Sepsis Screening Result: No Definite Risk - Focused Exam Vital Signs: Vital Signs Temp Pulse Resp BP Pulse Ox 09/19/20 08:06 98.7 F 119 H 18 114/70 99 09/19/20 03:00 99 F 115 H 19 138/82 95 09/19/20 02:41 82 18 132/76 98 09/19/20 00:08 112 H 18 131/93 H 97 09/18/20 22:43 100.1 F 130 H 16 130/96 H 93 L - Problem List (1) Tachycardia SNOMED Code(s): 0286653 ICD Code: R00.0 - TACHYCARDIA, UNSPECIFIED Status: Acute Current Visit: Yes (2) Upper GI bleed SNOMED Code(s): 56524653 ICD Code: K92.2 - GASTROINTESTINAL HEMORRHAGE, UNSPECIFIED Status: Acute Current Visit: Yes Problem List Initiated/Reviewed/Updated: Yes Orders Last 24hrs: Active Orders 24 hr Category Date Time Status Admission Status [Patient Status] [ADT] Stat ADT 09/19/20 01:02 Active EKG Documentation Completion [RC] STAT Care 09/18/20 22:20 Active Notify Provider Consults [RC] ASDIRECTED Care 09/19/20 01:01 Active Consult to Physician [CONS] Stat Cons 09/19/20 01:01 Active NPO [Nothing Per Oral Diet] [DIET] Diet 09/19/20 Breakfast Active CBC WITH AUTO DIFF [HEME] Stat Lab 09/19/20 08:47 Received COMPREHENSIVE METABOLIC PN,CMP [CHEM] Stat Lab 09/19/20 08:47 Received INR,PT,PROTHROMBIN TIME [COAG] Stat Lab 09/19/20 08:47 Received Pantoprazole [ProTONIX IV] 40 mg Med 09/19/20 09:00 Active Sodium Chloride 0.9% [Normal Saline] 10 ml IV BID Sodium Chloride 0.9% [Normal Saline] 1,000 ml Med 09/19/20 05:15 Active IV ASDIRECTED Sodium Chloride 0.9% [Saline Flush] Med 09/18/20 22:20 Active 10 ml FLUSH ASDIRECTED PRN Sodium Chloride 0.9% [Saline Flush] Med 09/18/20 22:20 Active 2.5 ml FLUSH ASDIRECTED PRN Saline Lock Insert [OM.PC] Stat Oth 09/18/20 22:20 Ordered Medication Orders Sodium Chloride (Normal Saline) 1,000 mls @ 125 mls/hr IV ASDIRECTED KISHA Last Admin: 09/19/20 05:23 Dose: 125 mls/hr Documented by: WYATT Pantoprazole Sodium 40 mg/ (Sodium Chloride) 10 mls @ 300 mls/hr IV BID KISHA Sodium Chloride (Sodium Chloride 0.9% 10 Ml Syringe) 10 ml FLUSH ASDIRECTED PRN PRN Reason: Keep Vein Open Last Admin: 09/18/20 22:54 Dose: 10 ml Documented by: PAUL Sodium Chloride (Sodium Chloride 0.9% 2.5 Ml Syringe) 2.5 ml FLUSH ASDIRECTED PRN PRN Reason: Keep Vein Open Last Admin: 09/18/20 22:55 Dose: 2.5 ml Documented by: PAUL Assessment/Plan Comment:: 30-year-old male with no significant past medical history except for intermittent heartburn, was admitted for significant nausea, vomiting brown- black fluid, unable to tolerate diet, hypertensive and tachycardic upon admission. 1. Suspected upper GI bleed: Brown-black intractable vomitting, which is improved this morning, however patient is still mildly nauseous, responds well to Zofran, denies any abdominal pain, vomiting or diarrhea this morning. Given Protonix in the ED, continue pantoprazole 40 twice daily Surgery has been consulted patient will undergo endoscopy 2. Tachycardia secondary to dehydration: Improved, 130s on admission, currently 119 Patient remains n.p.o., however was given fluids upon admission and has been on a maintenance rate of NS 125. 3. Hypertensive: Resolved, 114/70 this morning Had elevated blood pressure 151/103 on admission, Code status: Full code Diet: N.p.o. Activity: Up ad brett. DVT prophylaxis: SCDs GI prophylaxis: Protonix 40 twice daily
[2020-09-19] MEDS ORDERED: Lidocaine 2% 5 ML SDV ONE (09:14)
[2020-09-19] MEDS ORDERED: fentaNYL 100 MCG/2 ML SDV ONE (09:14)
[2020-09-19] MEDS ORDERED: Midazolam 1 MG/ML 2 ML SDV ONE (09:14)
[2020-09-19] MEDS ORDERED: Ondansetron 4 MG/2 ML SDV ONE (09:14)
[2020-09-19] MEDS ORDERED: Propofol 200 MG/20 ML SDV ONE (09:14)
[2020-09-19 09:25] LABS: BLOOD UREA NITROGEN,BUN 7 mg/dL (7.0-18.0); CARBON DIOXIDE,CO2 26.9 mmol/L (21.0-32.0); CHLORIDE,CL 106 mmol/L (98-107); GLUCOSE RANDOM 110 mg/dL (74-106); POTASSIUM,K 3.5 mmol/L (3.5-5.1); SODIUM,NA 143 mmol/L (136-148)
[2020-09-19] MEDS ORDERED: Sodium Chloride 0.9% 1,000 ML IV ONE (09:35)
--- NOTE | 2020-09-19 10:18 | PCM.OPNOTE ---
- General Post-Op/Procedure Note Date of Surgery/Procedure: 09/19/20 Operative Procedure(s): EGD with biopsies Findings: Small hiatal hernia LA grade 2 esophagitis minimal gastritis dictation number [id number] Pre Op Diagnosis: Black emesis. GERD Post-Op Diagnosis: Small hiatal hernia. LA grade 2 esophagitis. minimal gastritis Primary Surgeon: Bhargav Santillan Pathology: Biopsies Complications: None Condition: Stable Free Text/Narrative:: Intake & Output 09/18/20 09/19/20 09/19/20 22:59 06:59 14:59 Intake Total 93 Output Total 150 Balance -57
--- NOTE | 2020-09-19 10:22 | PCM.POSTAN ---
POST ANESTHESIA ASSESSMENT - MENTAL STATUS Mental Status: Alert - VITAL SIGNS Vital Signs: Last Vital Signs Temp 36.5 C 09/19/20 10:03 Pulse 98 09/19/20 10:19 Resp 18 09/19/20 10:19 BP 108/68 09/19/20 10:19 Pulse Ox 94 L 09/19/20 10:19 - RESPIRATORY Respiratory Status: Respiratory Rate WNL, Airway Patent, O2 Saturation Stable - CARDIOVASCULAR CV Status: Pulse Rate WNL, Blood Pressure Stable Free Text/Narrative:: Tachycardia resolved - GASTROINTESTINAL GI Status: No Symptoms - PAIN Pain Score: 0 - POST OP HYDRATION Hydration Status: Adequate & Stable - OBSERVATIONS Free Text/Narrative:: doing well. No problems noted.
--- NOTE | 2020-09-19 10:45 | PCM48HPAN ---
Post Anesthesia Note - EVALUATION WITHIN 48HRS OF ANESTHETIC Vital Signs in Normal Range: Yes Patient Participated in Evaluation: Yes Respiratory Function Stable: Yes Airway Patent: Yes Cardiovascular Function Stable: Yes Hydration Status Stable: Yes Pain Control Satisfactory: Yes Nausea and Vomiting Control Satisfactory: Yes Mental Status Recovered: Yes Vital Signs: Last Vital Signs Temp 36.5 C 09/19/20 10:03 Pulse 97 09/19/20 10:23 Resp 17 09/19/20 10:23 BP 114/69 09/19/20 10:23 Pulse Ox 94 L 09/19/20 10:23 - COMMENTS/OBSERVATIONS Free Text/Narrative:: No problems noted.
--- NOTE | 2020-09-19 13:12 | OR ---
SURGEON: YANDY BILLS MD DATE OF PROCEDURE: 09/19/2020 PREOPERATIVE DIAGNOSES: 1. Black emesis. 2. Gastroesophageal reflux disease. POSTOPERATIVE DIAGNOSES: 1. Small hiatal hernia. 2. LA grade 2 esophagitis. 3. Very minimal gastritis. PRIMARY SURGEON: Yandy Bills MD ANESTHESIA: With Anesthesiology. EXTENT OF EGD: To the second part of duodenum. COMPLICATIONS: None. PATHOLOGY: Biopsies from the EGD. REASON FOR PROCEDURE: The patient was a 30-year-old gentleman who yesterday started having emesis. The first one was dark brown and turned to black and coffee-ground like. However, later in the evening, it became more just bilious. The patient was having some abdominal pain when he vomited, but when he was not vomiting, no abdominal pain. This morning when he was seen, he had some minimal nausea, no more emesis. Had not had any more bowel movements. Hemoglobin went from 15.3 to 13.9. The patient still is a little tachy, but he was evaluated by Medicine team and cleared for upper endoscopy and given a bolus of fluid. I did go over with the patient again risks, goals, and alternatives of procedure. Risks include, but not limited to bleeding, perforation, missed lesions, and we might not find a cause of his black coffee-ground emesis. PROCEDURE IN DETAIL: Physical exam was performed. Major risks and benefits associated with procedure were explained in detail. The patient verbalized understanding and was in agreement with the same. The patient was connected to the appropriate monitoring devices and IV was started. EKG, pulse oximetry, blood pressure, and capnography were monitored throughout the case. Oxygen and sedation were provided by the anesthesiologist. The patient was placed in left lateral decubitus position. Sedation began. After adequate sedation was achieved, the upper endoscope was advanced under direct visualization without difficulty in the upper GI tract. The anatomy of mucosa of the esophagus, GE junction, stomach, pylorus, and at least the second part of the duodenum were inspected. Duodenum appeared normal. The scope was brought up to the stomach. Both retro and antegrade views of the stomach were done. He had maybe some very minimal gastritis. Did do biopsies of the antrum and pylorus area to check for H. pylori. The scope was brought up to the GE junction. He did have a very small sliding hiatal hernia. This was less than a cm in size. GE junction was approximately 39 cm from the incisor. He had a slightly irregular GE junction with esophagitis LA grade B. He appeared to have 3 about a centimeter to a centimeter and a half long mucosal breaks, but they did not extend between folds. Did do a couple of GE junction and esophageal biopsies. The scope was brought back to the stomach. The stomach was then deinsufflated. The scope was brought up to the GE junction again. GE junction had good hemostasis at the biopsy sites. The scope was brought up through the esophagus. The esophagus appeared normal. The scope was completely removed and the procedure was terminated. ENDOSCOPIC DIAGNOSES: 1. Minimal gastritis. 2. LA grade 2B esophagitis. 3. Small hiatal hernia. RECOMMENDATIONS: The patient should follow up in the clinic to go over his pathology. Did discuss with the patient about esophagitis, he should be on a PPI on a regular basis. I did discuss this with the patient and the hospital team. DATNE PAGAN /[id number]
--- NOTE | 2020-09-19 14:03 | PCM.DCSUM1 ---
Discharge Summary - Hospital Course HPI Initial Comments: Patient is a 30-year-old male with no significant past medical history except for frequent heartburn and stomach complaints of lactose intolerance. Patient presented to the ED yesterday with complaints of vomiting for approximately 6 hours. States that initially he had small vomits with a brown color associated gradually increasing in quantity, frequency and progressing to a black color. Patient denies any associated pain, fever, chills, urinary or bowel changes. Does endorse associated nausea, decreased appetite, inability to keep food down. States that Zofran given had helped reduce nausea symptoms. States last night his vomits became more yellow-green like bile. ER course: Patient was tachycardic 130s, blood pressure of 151/103, labs were ordered including CBC, CMP and INR. IV fluids were started, EKG, lipase level and given Protonix. Initially given LR followed by maintenance fluids of normal saline at 125. CT indicated hiatal hernia and to undigested pills in the abdomen. Brief History: Patient was admitted due to significant vomiting, which is now resolved. Patient was suspected to have upper GI bleed, found to be negative after consultation and EGD performed by Dr. Santillan. Patient found to have mild gastritis and category B esophagitis. Patient was started on clear liquid diet advance as tolerated. Patient was stable and much improved, ready for discharge. Diagnosis: Stroke: No - Discharge Data Discharge Date: 09/19/20 Discharge Disposition: Home, Self-Care 01 Condition: Stable - Referral to Home Health Primary Care Physician: PCP None - Discharge Diagnosis/Problem(s) (1) Tachycardia SNOMED Code(s): 2791003 ICD Code: R00.0 - TACHYCARDIA, UNSPECIFIED Status: Acute Current Visit: Yes (2) Upper GI bleed SNOMED Code(s): 20565163 ICD Code: K92.2 - GASTROINTESTINAL HEMORRHAGE, UNSPECIFIED Status: Acute Current Visit: Yes - Patient Summary/Data Operative Procedure(s) Performed: EGD with biopsies Consults: Consultations 09/19/20 01:01 Consult to Physician [CONS] Stat - Patient Instructions Diet: Regular Diet as Tolerated Activity: As Tolerated Driving: May Drive Today Showering/Bathing: May Shower Notify Provider of: Fever, Nausea and/or Vomiting Other/Special Instructions: Please return to the hospital for vaginal symptoms resume or worsen, especially in the event that you have resumption of nausea, vomiting, bloody vomitus any dizziness, abdominal pain. - Discharge Plan *PRESCRIPTION DRUG MONITORING PROGRAM REVIEWED*: Not Applicable *COPY OF PRESCRIPTION DRUG MONITORING REPORT IN PATIENT CHANTALE: Not Applicable Oxygen Therapy Mode: Room Air Patient Handouts: Upper Gastrointestinal Bleeding Referrals: Bhargav Santillan MD [Physician] - - Discharge Summary/Plan Comment DC Time >30 min.: No Discharge Summary/Plan Comment: Patient was admitted and evaluated for possible upper GI bleed. Nausea and vomiting have subsided, patient is vitally stable, patient is able to tolerate p.o. diet and ready for discharge. EGD confirmed no acute bleed, mild gastritis and category B esophagitis. Advised patient to have 2 weeks of Prilosec 30 minutes prior to meals. Patient will discharge today and is advised to closely follow-up with PCP in the next day or 2. - Patient Data Vitals - Most Recent: Last Vital Signs Temp 98.4 F 09/19/20 12:09 Pulse 101 H 09/19/20 12:09 Resp 17 09/19/20 12:09 BP 122/84 09/19/20 12:09 Pulse Ox 95 09/19/20 12:09 Weight - Most Recent: 208 lb 9.6 oz I&O - Last 24 hours: Intake & Output 09/18/20 09/19/20 09/19/20 22:59 06:59 14:59 Intake Total 93 900 Output Total 150 Balance -57 900 Lab Results - Last 24 hrs: Laboratory Results - last 24 hr 09/18/20 09/18/20 09/18/20 Range/Units 22:37 23:10 23:10 WBC 7.13 (4.0-11.0) K/uL RBC 5.24 (4.50-5.90) M/uL Hgb 15.3 (13.0-17.0) g/dL Hct 43.6 (38.0-50.0) % MCV 83.2 (80.0-98.0) fL MCH 29.2 (27.0-32.0) pg MCHC 35.1 (31.0-37.0) g/dL RDW Std Deviation 36.3 (28.0-62.0) fl RDW Coeff of Xavier 12 (11.0-15.0) % Plt Count 209 (150-400) K/uL MPV 9.10 (7.40-12.00) fL Neut % (Auto) 83.6 H (48.0-80.0) % Lymph % (Auto) 6.3 L (16.0-40.0) % [place] % (Auto) 9.8 (0.0-15.0) % Eos % (Auto) 0.3 (0.0-7.0) % Baso % (Auto) 0.0 (0.0-1.5) % Neut # (Auto) 6.0 H (1.4-5.7) K/uL Lymph # (Auto) 0.5 L (0.6-2.4) K/uL [place] # (Auto) 0.7 (0.0-0.8) K/uL Eos # (Auto) 0.0 (0.0-0.7) K/uL Baso # (Auto) 0.0 (0.0-0.1) K/uL Nucleated RBC % 0.0 /100WBC Nucleated RBCs # 0 K/uL INR Sodium 140 (136-148) mmol/L Potassium 3.6 (3.5-5.1) mmol/L Chloride 102 (98-107) mmol/L Carbon Dioxide 29.1 (21.0-32.0) mmol/L BUN 9 (7.0-18.0) mg/dL Creatinine 1.0 (0.8-1.3) mg/dL Est Cr Clr Drug Dosing 129.10 mL/min Estimated GFR (MDRD) > 60.0 ml/min Glucose 118 H (74-106) mg/dL Calcium 9.0 (8.5-10.1) mg/dL Magnesium 1.9 (1.8-2.4) mg/dL Total Bilirubin 0.9 (0.2-1.0) mg/dL AST 12 L (15-37) IU/L ALT 24 (14-63) IU/L Alkaline Phosphatase 82 (46-116) U/L Total Protein 6.8 (6.4-8.2) g/dL Albumin 3.7 (3.4-5.0) g/dL Globulin 3.1 (2.6-4.0) g/dL Albumin/Globulin Ratio 1.2 (0.9-1.6) Lipase (73-393) U/L SARS-CoV-2 RNA (PETER) (NEGATIVE) Blood Type A POSITIVE Antibody Screen NEGATIVE 09/18/20 09/18/20 09/19/20 Range/Units 23:10 23:22 00:51 WBC (4.0-11.0) K/uL RBC (4.50-5.90) M/uL Hgb (13.0-17.0) g/dL Hct (38.0-50.0) % MCV (80.0-98.0) fL MCH (27.0-32.0) pg MCHC (31.0-37.0) g/dL RDW Std Deviation (28.0-62.0) fl RDW Coeff of Xavier (11.0-15.0) % Plt Count (150-400) K/uL MPV (7.40-12.00) fL Neut % (Auto) (48.0-80.0) % Lymph % (Auto) (16.0-40.0) % [place] % (Auto) (0.0-15.0) % Eos % (Auto) (0.0-7.0) % Baso % (Auto) (0.0-1.5) % Neut # (Auto) (1.4-5.7) K/uL Lymph # (Auto) (0.6-2.4) K/uL [place] # (Auto) (0.0-0.8) K/uL Eos # (Auto) (0.0-0.7) K/uL Baso # (Auto) (0.0-0.1) K/uL Nucleated RBC % /100WBC Nucleated RBCs # K/uL INR 1.08 Sodium (136-148) mmol/L Potassium (3.5-5.1) mmol/L Chloride (98-107) mmol/L Carbon Dioxide (21.0-32.0) mmol/L BUN (7.0-18.0) mg/dL Creatinine (0.8-1.3) mg/dL Est Cr Clr Drug Dosing mL/min Estimated GFR (MDRD) ml/min Glucose (74-106) mg/dL Calcium (8.5-10.1) mg/dL Magnesium (1.8-2.4) mg/dL Total Bilirubin (0.2-1.0) mg/dL AST (15-37) IU/L ALT (14-63) IU/L Alkaline Phosphatase (46-116) U/L Total Protein (6.4-8.2) g/dL Albumin (3.4-5.0) g/dL Globulin (2.6-4.0) g/dL Albumin/Globulin Ratio (0.9-1.6) Lipase 38 L (73-393) U/L SARS-CoV-2 RNA (PETER) NEGATIVE (NEGATIVE) Blood Type Antibody Screen 09/19/20 09/19/20 09/19/20 Range/Units 08:47 08:47 08:47 WBC 4.59 (4.0-11.0) K/uL RBC 4.77 (4.50-5.90) M/uL Hgb 13.9 (13.0-17.0) g/dL Hct 39.8 (38.0-50.0) % MCV 83.4 (80.0-98.0) fL MCH 29.1 (27.0-32.0) pg MCHC 34.9 (31.0-37.0) g/dL RDW Std Deviation 36.6 (28.0-62.0) fl RDW Coeff of Xavier 12 (11.0-15.0) % Plt Count 181 (150-400) K/uL MPV 8.90 (7.40-12.00) fL Neut % (Auto) 73.7 (48.0-80.0) % Lymph % (Auto) 12.4 L (16.0-40.0) % [place] % (Auto) 13.7 (0.0-15.0) % Eos % (Auto) 0.2 (0.0-7.0) % Baso % (Auto) 0.0 (0.0-1.5) % Neut # (Auto) 3.4 (1.4-5.7) K/uL Lymph # (Auto) 0.6 (0.6-2.4) K/uL [place] # (Auto) 0.6 (0.0-0.8) K/uL Eos # (Auto) 0.0 (0.0-0.7) K/uL Baso # (Auto) 0.0 (0.0-0.1) K/uL Nucleated RBC % 0.0 /100WBC Nucleated RBCs # 0 K/uL INR 1.11 Sodium 143 (136-148) mmol/L Potassium 3.5 (3.5-5.1) mmol/L Chloride 106 (98-107) mmol/L Carbon Dioxide 26.9 (21.0-32.0) mmol/L BUN 7 (7.0-18.0) mg/dL Creatinine 0.8 (0.8-1.3) mg/dL Est Cr Clr Drug Dosing 161.37 mL/min Estimated GFR (MDRD) > 60.0 ml/min Glucose 110 H (74-106) mg/dL Calcium 7.8 L (8.5-10.1) mg/dL Magnesium (1.8-2.4) mg/dL Total Bilirubin 0.9 (0.2-1.0) mg/dL AST 12 L (15-37) IU/L ALT 21 (14-63) IU/L Alkaline Phosphatase 69 (46-116) U/L Total Protein 5.9 L (6.4-8.2) g/dL Albumin 3.1 L (3.4-5.0) g/dL Globulin 2.8 (2.6-4.0) g/dL Albumin/Globulin Ratio 1.1 (0.9-1.6) Lipase (73-393) U/L SARS-CoV-2 RNA (PETER) (NEGATIVE) Blood Type Antibody Screen Med Orders - Current: Current Medications Sodium Chloride (Normal Saline) 1,000 mls @ 125 mls/hr IV ASDIRECTED KISHA Last Admin: 09/19/20 10:46 Dose: 125 mls/hr Documented by: Pantoprazole Sodium 40 mg/ (Sodium Chloride) 10 mls @ 300 mls/hr IV BID KISHA Last Admin: 09/19/20 09:17 Dose: 300 mls/hr Documented by: Sodium Chloride (Sodium Chloride 0.9% 10 Ml Syringe) 10 ml FLUSH ASDIRECTED PRN PRN Reason: Keep Vein Open Last Admin: 09/18/20 22:54 Dose: 10 ml Documented by: Sodium Chloride (Sodium Chloride 0.9% 2.5 Ml Syringe) 2.5 ml FLUSH ASDIRECTED PRN PRN Reason: Keep Vein Open Last Admin: 09/18/20 22:55 Dose: 2.5 ml Documented by: Discontinued Medications Fentanyl (Fentanyl 100 Mcg/2 Ml Sdv) Confirm Administered Dose 100 mcg .ROUTE .STK-MED ONE Stop: 09/19/20 09:15 Sodium Chloride (Normal Saline) 1,000 mls @ 999 mls/hr IV .BOLUS ONE Stop: 09/18/20 23:20 Last Admin: 09/18/20 22:54 Dose: 999 mls/hr Documented by: Pantoprazole Sodium 80 mg/ (Sodium Chloride) 20 mls @ 420 mls/hr IVPUSH ONETIME ONE Stop: 09/18/20 22:31 Last Admin: 09/18/20 22:55 Dose: 420 mls/hr Documented by: Dextrose/Lactated Ringer's (Dextrose 5%-Lactated Ringers) 1,000 mls @ 125 mls/hr IV ASDIRECTED KISHA Last Admin: 09/19/20 00:45 Dose: 125 mls/hr Documented by: Pantoprazole Sodium 40 mg/ (Sodium Chloride) 10 mls @ 300 mls/hr IV BIDAC KISHA Sodium Chloride (Normal Saline) 1,000 mls @ 999 mls/hr IV ONETIME ONE Stop: 09/19/20 10:35 Last Admin: 09/19/20 09:38 Dose: Not Given Documented by: Iopamidol (Iopamidol 755 Mg/Ml 500 Ml Multipack Bottle) 100 ml IVPUSH ONETIME STA Stop: 09/19/20 00:28 Last Admin: 09/19/20 00:27 Dose: 100 ml Documented by: Lidocaine (Lidocaine 2% 5 Ml Sdv) Confirm Administered Dose 5 ml .ROUTE .STK-MED ONE Stop: 09/19/20 09:15 Midazolam HCl (Midazolam 1 Mg/Ml 2 Ml Sdv) Confirm Administered Dose 2 mg .ROUTE .STK-MED ONE Stop: 09/19/20 09:15 Ondansetron HCl (Ondansetron 4 Mg/2 Ml Sdv) 4 mg IVPUSH ONETIME ONE Stop: 09/18/20 23:04 Last Admin: 09/18/20 23:10 Dose: 4 mg Documented by: Ondansetron HCl (Ondansetron 4 Mg/2 Ml Sdv) Confirm Administered Dose 4 mg .ROUTE .STK-MED ONE Stop: 09/19/20 09:15 Propofol (Propofol 200 Mg/20 Ml Sdv) Confirm Administered Dose 200 mg .ROUTE .STK-MED ONE Stop: 09/19/20 09:15 Sucralfate (Sucralfate 1 Gm Tab) 1 gm PO ONETIME ONE Stop: 09/18/20 23:59 Last Admin: 09/19/20 00:07 Dose: 1 gm Documented by:
== END 2020-09-19 14:50 | disposition home or self-care (01) ==
LOC: MW.ED 21:38 → MW.MS 09-19 01:02
PROVIDERS: ADMIT Internal Medicine; ATTEND Internal Medicine
DX: K29.50 Unspecified chronic gastritis without bleeding (principal); K44.9 Diaphragmatic hernia without obstruction or gangrene; K21.00 Gastro-esophageal reflux disease with esophagitis, without bleeding; R00.0 Tachycardia, unspecified; E86.0 Dehydration; I10 Essential (primary) hypertension; Z01.812 Encounter for preprocedural laboratory examination; Z20.822 Contact with and (suspected) exposure to COVID-19; Z91.011 Allergy to milk products
CPT/HCPCS: 00731; 36415; 74177; 74177-26; 80053; 83690; 83735; 85025; 85610; 86850; 86900; 86901; 88305; 93005; 93010; 96374; 96375; 96376; 99235; 99284; 99285-25; A9270-GY; C9113; G0378; J2250; J2405; J2704; J3010; J7030; J7121; Q9967; U0002

== ENCOUNTER 2023-07-14 17:43 | Emergency (ER) | payer OTHER ==
[2023-07-14 17:58] LABS: BASOPHILS ABSOLUTE AUTO 0.01 K/uL (0.00-0.20); BASOPHILS PERCENT AUTO 0.1 % (0.0-1.0); EOSINOPHILS ABSOLUTE AUTO 0.16 K/uL (0.00-0.45); HEMATOCRIT 43.5 % (42.0-52.0); HEMOGLOBIN 15.6 g/dL (14.0-18.0); IMMATURE GRAN ABSOLUTE AUTO 0.03 K/uL (0.00-0.05); IMMATURE GRAN PERCENT AUTO 0.4 % (0.0-0.4); LYMPHOCYTES ABSOLUTE AUTO 2.98 K/uL (1.00-4.80); LYMPHOCYTES PERCENT AUTO 38.1 % (24.0-44.0); MEAN CORPUSCULAR HEMOGLOBIN 28.6 pg (28.0-32.0); MEAN CORPUSCULAR HGB CONC 35.9 g/dL (32.0-36.0); MEAN CORPUSCULAR VOLUME 79.7 fL (83.0-99.0); MEAN PLATELET VOLUME 8.8 fL (9.4-12.4); MONOCYTES ABSOLUTE AUTO 0.89 K/uL (0.00-0.80); MONOCYTES PERCENT AUTO 11.4 % (0.0-8.0); NEUTROPHILS ABSOLUTE AUTO 3.76 K/uL (1.80-7.70); PLATELET COUNT,PLT 306 K/uL (150-400); RED BLOOD CELL COUNT 5.46 M/uL (4.52-5.90); WHITE BLOOD CELL COUNT,WBC 7.83 K/uL (3.9-11.3)
[2023-07-14 18:19] LABS: A/G RATIO 1.4 (0.9-1.6); ALANINE AMINOTRANSFERASE,ALT 35 IU/L (14-63); ALBUMIN 4.1 g/dL (3.4-5.0); ALKALINE PHOSPHATASE 70 U/L (46-116); ASPARTATE AMNIOTRANSFERASE,AST 11 IU/L (15-37); BILIRUBIN TOTAL 0.4 mg/dL (0.2-1.0); BLOOD UREA NITROGEN,BUN 11 mg/dL (7.0-18.0); CALCIUM 9.4 mg/dL (8.5-10.1); CARBON DIOXIDE,CO2 26.1 mmol/L (21.0-32.0); CHLORIDE,CL 100 mmol/L (98-107); CREATININE 0.9 mg/dL (0.8-1.3); ESTIMATED GFR 116 mL/min (>60); ETHANOL BLOOD MEDICAL < 3.0 mg/dL; GLUCOSE RANDOM 107 mg/dL (74-106); POTASSIUM,K 3.7 mmol/L (3.5-5.1); PROTEIN TOTAL,TP 7.1 g/dL (6.4-8.2); SODIUM,NA 139 mmol/L (136-148)
[2023-07-14] MEDS: Diphtheria,Pertussis(Acell),Tetanus Vaccine 0.5 ML Syringe IM ONE (18:26)
[2023-07-14] MEDS: Iopamidol 755 MG/ML 500 ML Multipack Bottle IVPUSH STA (18:34)
[2023-07-14 19:12] LABS: INR 1.07 (0.86-1.11)
== END 2023-07-14 20:30 | disposition home or self-care (01) ==
LOC: MW.ED 17:43
DX: S00.83XA Contusion of other part of head, initial encounter (principal); S80.02XA Contusion of left knee, initial encounter; S60.511A Abrasion of right hand, initial encounter; Z23 Encounter for immunization; Z75.8 Other problems related to medical facilities and other health care; Z91.011 Allergy to milk products; V59.40XA Driver of pick-up truck or van injured in collision with unspecified motor vehicles in traffic accident, initial encounter; Y93.89 Activity, other specified
CPT/HCPCS: 36415; 70450; 70486; 71275; 73120; 73560; 74177; 80053; 80307; 84484; 85025; 85610; 86850; 86900; 86901; 90471; 90715; 99285; Q9967; 99284

== ENCOUNTER 2024-07-01 13:43 | Emergency (ER) | payer OTHER ==
[2024-07-01] MEDS: Sodium Chloride 0.9% 1,000 ML IV ONE (14:07)
[2024-07-01] MEDS: Ondansetron 4 MG/2 ML SDV IVPUSH ONE (14:08)
[2024-07-01] MEDS: Ketorolac 30 MG/ML SDV IVPUSH ONE (14:09)
[2024-07-01] MEDS: Acetaminophen 500 MG Tab PO ONE (16:04)
[2024-07-01] MEDS: fentaNYL 100 MCG/2 ML SDV IVPUSH PRN (16:29)
== END 2024-07-01 17:22 | disposition home or self-care (01) ==
LOC: MW.ED 13:43
DX: S52.572A Other intraarticular fracture of lower end of left radius, initial encounter for closed fracture (principal); M21.932 Unspecified acquired deformity of left forearm; Z91.011 Allergy to milk products; Z79.899 Other long term (current) drug therapy; V43.52XA Car driver injured in collision with other type car in traffic accident, initial encounter; Y92.410 Unspecified street and highway as the place of occurrence of the external cause
CPT/HCPCS: 25605; 73100; 96361; 96374; 96375; 99284; A9270; J1885; J2405; J3010; J7030; 25635; 29105